=== PATIENT | male | born 2005 | race Caucasian/White ===

== ENCOUNTER 2025-06-05 01:02 | Inpatient (IN) | payer OTHER ==
[2025-06-05] MEDS ORDERED: ONDANSETRON 4 MG/2 ML VIAL ONE ×2 (01:59→11:44)
[2025-06-05] MEDS ORDERED: ACETAMINOPHEN INJECTION 100 ML ONE ×2 (01:59→12:09)
[2025-06-05] MEDS: ACETAMINOPHEN 1000 MG/100 ML BAG IVPB ONE (02:14)
[2025-06-05] MEDS: ONDANSETRON 4 MG/2 ML VIAL IVPB ONE (02:14)
[2025-06-05] MEDS: SODIUM CHLORIDE 0.9% 500 ML INFUS.BAG IV ONE (02:14)
[2025-06-05 02:23] LABS: ABSOLUTE IMMATURE GRANULOCYTES 0.03 x10^3/uL (0.0-0.031); BASOPHILS # 0.04 x10^3/uL (0.01-0.08); EOSINOPHIL % 0.1 % (0.8-7.0); EOSINOPHILS # 0.02 x10^3/uL (0.04-0.54); MCHC 33.8 g/dl (32.3-36.5); MEAN CELL VOLUME 88.1 fl (79.0-92.2); MEAN PLT VOLUME 12.1 fl (9.4-12.4); MONOCYTE # 0.32 x10^3/uL (0.30-0.82); MONOCYTE % 2.4 % (5.3-12.2); RDW 12.3 % (11.9-15.3)
[2025-06-05 02:43] LABS: INR 1.15 (0.83-1.09); PROTHROMBIN TIME (PATIENT) 12.5 SEC (9.7-13.0)
[2025-06-05 02:46] LABS: ACTIVATED PTT 32.7 SECONDS (25.2-36.5)
[2025-06-05 03:10] LABS: GLUCOSE,RANDOM 124.0 mg/dL (74-106); TOT PROT 8.6 g/dl (6.4-8.2)
[2025-06-05 03:11] LABS: CO2 22.0 mmol/L (21-32)
[2025-06-05 03:12] LABS: ALK PHOS 91.0 U/L (40-150)
[2025-06-05 03:15] LABS: SGOT/AST 22.0 U/L (5-34); SGPT/ALT 17.0 U/L (0-55)
[2025-06-05 03:16] LABS: CREATININE 0.91 mg/dL (0.55-1.3)
[2025-06-05 03:41] LABS: HCV DIAGNOSTIC IN-HOUSE W/RFLX NON-REACTIVE (NONREACTIVE); HIV INTERPRETATION NEGATIVE (NEGATIVE)
[2025-06-05] MEDS ORDERED: CEFOXITIN SODIUM 2 GM in DEXTROSE 5%-WATER - 100 ML IVPB SCH (04:30)
[2025-06-05] MEDS ORDERED: MORPHINE SULFATE 2 MG/ML SYRINGE ONE (04:32)
[2025-06-05] MEDS ORDERED: MORPHINE SULFATE 2 MG/ML SYRINGE IVPUSH PRN (04:48)
[2025-06-05] MEDS ORDERED: ONDANSETRON 4 MG/2 ML VIAL IVPUSH PRN ×2 (04:51→15:43)
[2025-06-05] MEDS: CEFOXITIN SODIUM 2 GM in DEXTROSE 5%-WATER - 100 ML IVPB SCH (05:03)
[2025-06-05] MEDS: morphine CARPU-JECT 4 MG/1 ML DISP.SYRIN IVPUSH ONE (05:52)
[2025-06-05] MEDS: SODIUM CHLORIDE 1,000 ML IV SCH (05:53)
[2025-06-05] MEDS: ACETAMINOPHEN 1000 MG/100 ML BAG IVPB PRN (05:53)
[2025-06-05 06:35] LABS: MCHC 34.1 g/dl (32.3-36.5); MEAN CELL VOLUME 88.0 fl (79.0-92.2); MEAN PLT VOLUME 12.0 fl (9.4-12.4); RDW 12.4 % (11.9-15.3)
[2025-06-05 07:35] LABS: GLUCOSE,RANDOM 126.0 mg/dL (74-106); TOT PROT 8.1 g/dl (6.4-8.2)
[2025-06-05 07:36] LABS: CO2 21.0 mmol/L (21-32)
[2025-06-05 07:38] LABS: ALK PHOS 90.0 U/L (40-150)
[2025-06-05 07:41] LABS: CREATININE 0.79 mg/dL (0.55-1.3); SGOT/AST 20.0 U/L (5-34); SGPT/ALT 16.0 U/L (0-55)
[2025-06-05 08:19] VITALS: BMI 26.8
[2025-06-05] MEDS: morphine CARPU-JECT 2 MG/1 ML DISP.SYRIN IVPUSH PRN (08:32)
[2025-06-05] MEDS ORDERED: BUPIVACAINE HCL/PF 0.25% (2.5MG/ML) 10 ML VIAL ONE (11:05)
[2025-06-05] MEDS ORDERED: PROPOFOL 40 ML ONE (11:42)
[2025-06-05] MEDS ORDERED: MIDAZOLAM HCL 2 MG/2 ML SINGLE DOSE VIAL ONE (11:43)
[2025-06-05] MEDS ORDERED: SUCCINYLCHOLINE CHLORIDE 200 MG/10 ML SYRINGE ONE (11:43)
[2025-06-05] MEDS ORDERED: ROCURONIUM BROMIDE 50 MG/5 ML SYRINGE ONE (11:43)
[2025-06-05] MEDS ORDERED: DEXAMETHASONE SOD PHOSPHATE 4 MG/1 ML VIAL ONE (11:44)
[2025-06-05] MEDS ORDERED: KETOROLAC TROMETHAMINE 30 MG/1 ML VIAL ONE (11:44)
[2025-06-05] MEDS ORDERED: ALBUTEROL SO4 HFA INHALER IH ONE (11:44)
[2025-06-05] MEDS ORDERED: cefOXitin SODIUM 2 GM VIAL (RESTRICTED TO ID) IVPB ONE (12:09)
[2025-06-05] MEDS: cefOXitin SODIUM 1 GM VIAL (RESTRICTED TO ID) IVPB ONE (12:10)
[2025-06-05] MEDS: BUPIVACAINE HCL/PF 0.25% (2.5MG/ML) 10 ML VIAL IM ONE (12:15)
[2025-06-05] MEDS ORDERED: SUGAMMADEX SODIUM 200 MG/2 ML VIAL ONE (12:27)
[2025-06-05] MEDS ORDERED: BACITRACIN ZINC 15 GM TUBE TOPICAL OINTMENT ONE (12:35)
[2025-06-05] MEDS ORDERED: LACTATED RINGERS SOLUTION 1,000 ML IV SCH (12:45)
[2025-06-05] MEDS: BACITRACIN ZINC 15 GM TUBE TOPICAL OINTMENT TP ONE (12:45)
[2025-06-05] MEDS ORDERED: ACETAMINOPHEN 1000 MG/100 ML BAG IVPB PRN (16:00)
[2025-06-05] MEDS: LACTATED RINGERS SOLUTION 1,000 ML IV SCH (16:18)
[2025-06-06 08:28] LABS: ABSOLUTE IMMATURE GRANULOCYTES 0.04 x10^3/uL (0.0-0.031); BASOPHILS # 0.02 x10^3/uL (0.01-0.08); EOSINOPHIL % 0.1 % (0.8-7.0); EOSINOPHILS # 0.02 x10^3/uL (0.04-0.54); MCHC 33.4 g/dl (32.3-36.5); MEAN CELL VOLUME 90.8 fl (79.0-92.2); MEAN PLT VOLUME 11.9 fl (9.4-12.4); MONOCYTE # 0.70 x10^3/uL (0.30-0.82); MONOCYTE % 4.9 % (5.3-12.2); RDW 12.4 % (11.9-15.3)
[2025-06-06 09:09] LABS: GLUCOSE,RANDOM 99.0 mg/dL (74-106)
[2025-06-06 09:10] LABS: TOT PROT 6.8 g/dl (6.4-8.2)
[2025-06-06 09:11] LABS: CO2 24.0 mmol/L (21-32)
[2025-06-06 09:12] LABS: ALK PHOS 72.0 U/L (40-150)
[2025-06-06 09:15] LABS: CREATININE 0.89 mg/dL (0.55-1.3); SGOT/AST 15.0 U/L (5-34); SGPT/ALT 12.0 U/L (0-55)
[2025-06-06 10:14] VITALS: PULSE 72; RESP 20
[2025-06-06 14:25] VITALS: BP 105/68; TEMP 97.7
[2025-06-06] MEDS: BACITRACIN ZINC 15 GM TUBE TOPICAL OINTMENT TP SCH (15:07)
== END 2025-06-06 16:06 | disposition home or self-care (01) | DRG 225 ==
LOC: JER 01:02 → JERBED 04:30 → J8W 07:55
PROVIDERS: ADMIT Internal Medicine; ATTEND Student in an Organized Health Care Education/Training Program
PROC: 0DTJ4ZZ Resection of Appendix, Percutaneous Endoscopic Approach (ICD-10-PCS; principal; 2025-06-05 11:00)
DX: K35.890 Other acute appendicitis without perforation or gangrene (principal); R10.31 Right lower quadrant pain
CPT/HCPCS: 36415; 74177-TC; 80053; 83735; 84100; 85025; 85610; 85730; 86803; 86850; 86900; 86901; 87389; 88304-TC; 94760; 99285-25; Q9967